=== PATIENT | male | born 1945 | race Two or more races ===

== ENCOUNTER 2016-06-07 18:11 | Inpatient (IN) | payer MEDICAID ==
[~2016-06-07] VITALS: Ht 177.8 cm; Wt 94.5 kg
[2016-06-07 19:38] LABS: Basophils # (auto) 0 uL; Basophils % (auto) 0.5 % (0.0-2.0); Eosinophils # (auto) 0.1 uL; Hematocrit 44.5 % (41.0-53.0); Hemoglobin 14.9 g/dL (13.5-17.5); Lymphocytes % (auto) 32.8 % (10.0-50.0); Mean Corpuscular Hemoglobin 28.2 pg (28.0-32.0); Mean Corpuscular Hgb Conc. 33.6 g/dL (32.0-36.0); Mean Corpuscular Volume 83.9 fL (80.0-100.0); Mean Platelet Volume 7.9 fL (7.4-10.4); Monocytes # (auto) 0.5 uL; Monocytes % (auto) 7.8 % (0.0-12.0); Neutrophils # (auto) 3.4 uL; Neutrophils % (auto) 56.9 % (37.0-80.0); Platelet Count (auto) 226 10^3/uL (140-450); Red Cell Distribution Width 14.3 % (11.6-16.0); White Blood Cell 5.9 10^3/uL (4.4-10.8)
[2016-06-07 20:08] LABS: Albumin 3.6 g/dL (3.4-5.0); BUN/Creatinine Ratio 15.3; Bilirubin, Total 0.5 mg/dL (0.2-1.0); Calcium 8.6 mg/dL (8.5-10.1); Magnesium 2.2 mg/dL (1.6-2.6); Potassium 3.9 mmol/L (3.5-5.1); Total Protein 6.7 g/dL (6.4-8.2)
[2016-06-07 21:00] LABS: Urine RBC None Seen /hpf (0 - 3)
[2016-06-07 21:15] LABS: Urine Bilirubin Negative (Negative); Urine Blood Negative /uL (Negative); Urine Color Yellow (Yellow); Urine Glucose Normal (Normal); Urine Ketone Negative (Negative); Urine Nitrite Negative (Negative); Urine Urobilinogen Normal (Negative); Urine pH 5.5 (5.0-8.0)
[2016-06-08] MEDS ORDERED: METOPROLOL TARTRATE 50 MG TAB PO ONE
[2016-06-08] MEDS ORDERED: TEMAZEPAM 15 MG CAP PO PRN
[2016-06-08] MEDS ORDERED: ACETAMINOPHEN 325 MG TAB PO PRN
[2016-06-08] MEDS ORDERED: ONDANSETRON HCL 4 MG/2 ML VIAL IV PRN
[2016-06-08] MEDS ORDERED: DEXTROSE (50%) 50ML SYRG IV PRN
[2016-06-08] MEDS: ACCU-CHEK COMFORT CURVE STRIP VI SCH ×5 (00:57→21:40)
[2016-06-08] MEDS: InsuLIN REG 1unit/0.01ml Soln (100units/ml) SC SCH ×5 (00:57→21:42)
[2016-06-08 02:30] VITALS: BP 144/80
[2016-06-08] MEDS ORDERED: LISI-275 PO (02:59)
[2016-06-08] MEDS ORDERED: MET50T PO (02:59)
[2016-06-08] MEDS ORDERED: PIOG30TA37 PO (02:59)
[2016-06-08] MEDS ORDERED: METF-314 PO (02:59)
[2016-06-08] MEDS ORDERED: GLIM4TAB42 PO (02:59)
[2016-06-08] MEDS ORDERED: ATOR20TA PO (02:59)
[2016-06-08] MEDS ORDERED: ASPI81CH43 PO (02:59)
[2016-06-08 05:00] VITALS: BP 151/87
[2016-06-08] MEDS: ISOSORBIDE DINITRATE 10 MG TAB PO SCH ×3 (05:42→18:38)
[2016-06-08 05:53] LABS: Basophils # (auto) 0 uL; Basophils % (auto) 0.5 % (0.0-2.0); Eosinophils # (auto) 0.1 uL; Eosinophils % (auto) 1.8 % (0.0-7.0); Hematocrit 45.9 % (41.0-53.0); Hemoglobin 15.1 g/dL (13.5-17.5); Lymphocytes # (auto) 2.4 uL; Lymphocytes % (auto) 33.8 % (10.0-50.0); Mean Corpuscular Hemoglobin 27.8 pg (28.0-32.0); Mean Corpuscular Hgb Conc. 32.8 g/dL (32.0-36.0); Mean Corpuscular Volume 84.8 fL (80.0-100.0); Monocytes # (auto) 0.5 uL; Monocytes % (auto) 7.3 % (0.0-12.0); Neutrophils # (auto) 4.1 uL; Neutrophils % (auto) 56.6 % (37.0-80.0); Platelet Count (auto) 218 10^3/uL (140-450); Red Cell Distribution Width 14.4 % (11.6-16.0); White Blood Cell 7.2 10^3/uL (4.4-10.8)
[2016-06-08 06:20] LABS: Albumin 3.6 g/dL (3.4-5.0); Bilirubin, Total 0.7 mg/dL (0.2-1.0); Calcium 8.6 mg/dL (8.5-10.1); Potassium 3.6 mmol/L (3.5-5.1); Total Protein 6.7 g/dL (6.4-8.2)
[2016-06-08 08:00] VITALS: BP 94/42
[2016-06-08] MEDS: METOPROLOL TARTRATE 50 MG TAB PO SCH ×2 (09:49→21:40)
[2016-06-08] MEDS: FAMOTIDINE 20 MG TAB PO SCH ×2 (09:49→21:40)
[2016-06-08] MEDS: LISINOPRIL 5 MG TAB PO SCH (09:49)
[2016-06-08] MEDS: ASPirin 81 mg TAB PO SCH (09:53)
[2016-06-08] MEDS ORDERED: PIOGLITAZONE HYDROCHLORIDE 30 MG TAB PO SCH (10:00)
[2016-06-08] MEDS ORDERED: ENOXAPARIN SOD 40 MG/0.4 ML SYRINGE SC SCH (10:00)
[2016-06-08] MEDS: SODIUM CHLORIDE 0.9% 1,000 ML IV SCH ×2 (11:15→21:40)
[2016-06-08 12:00] VITALS: BP 104/69
[2016-06-08] MEDS ORDERED: LIDOCAINE 2%HCL (LOCAL ANESTH.) INJ 20ML MDV ONE (13:09)
[2016-06-08] MEDS ORDERED: IODIXANOL 320MG/ML 100ML BTL IV ONE (13:09)
[2016-06-08 13:16] LABS: INR 1.07 (0.9-1.15); Prothrombin Time 11.6 sec (9.37-12.3)
[2016-06-08] MEDS ORDERED: VERAPAMIL 2.5MG/ML INJ 2ML VIAL IV ONE (14:37)
[2016-06-08] MEDS ORDERED: NITROGLYCERIN 5MG/ML 10ML VIAL IV ONE (14:37)
[2016-06-08] MEDS ORDERED: SODIUM CHLORIDE 0.9% 1,000 ML IV SCH (15:21)
[2016-06-08] MEDS ORDERED: MORPHINE SULF INJ 2 MG/ML SYRINGE 1ML IV PRN ×3 (15:30)
[2016-06-08] MEDS ORDERED: ACETAMINOPHEN 500 MG TAB PO PRN (15:30)
[2016-06-08] MEDS ORDERED: NITROGLYCERIN 0.4 MG SL TAB SL PRN ×3 (15:30)
[2016-06-08] MEDS ORDERED: ENOXAPARIN SOD 100 MG/1 ML SYRINGE SC SCH (19:00)
[2016-06-08] MEDS: HYDROcodone-ACET 5/325MG TAB PO PRN (20:00)
[2016-06-08] MEDS ORDERED: CLOPIDOGREL 300 MG TAB PO ONE (20:45)
[2016-06-08 21:30] VITALS: BP 128/81
[2016-06-08] MEDS ORDERED: ATORVASTATIN 20 MG TAB PO SCH (22:00)
[2016-06-09 05:22] VITALS: BP 101/52
[2016-06-09] MEDS: ISOSORBIDE DINITRATE 10 MG TAB PO SCH ×2 (05:54→13:52)
[2016-06-09] MEDS: InsuLIN REG 1unit/0.01ml Soln (100units/ml) SC SCH ×2 (05:55→12:00)
[2016-06-09] MEDS: ACCU-CHEK COMFORT CURVE STRIP VI SCH ×2 (05:55→12:00)
[2016-06-09 06:22] LABS: Basophils # (auto) 0 uL; Basophils % (auto) 0.6 % (0.0-2.0); Eosinophils # (auto) 0.1 uL; Eosinophils % (auto) 1.7 % (0.0-7.0); Hemoglobin 13.5 g/dL (13.5-17.5); Lymphocytes # (auto) 2.1 uL; Lymphocytes % (auto) 30.9 % (10.0-50.0); Mean Corpuscular Hemoglobin 28.4 pg (28.0-32.0); Mean Corpuscular Hgb Conc. 33.7 g/dL (32.0-36.0); Mean Corpuscular Volume 84.4 fL (80.0-100.0); Mean Platelet Volume 8.3 fL (7.4-10.4); Monocytes # (auto) 0.6 uL; Monocytes % (auto) 8.3 % (0.0-12.0); Neutrophils # (auto) 3.9 uL; Neutrophils % (auto) 58.5 % (37.0-80.0); Platelet Count (auto) 216 10^3/uL (140-450); Red Cell Distribution Width 14.5 % (11.6-16.0); White Blood Cell 6.7 10^3/uL (4.4-10.8)
[2016-06-09 06:51] LABS: Potassium 3.5 mmol/L (3.5-5.1)
[2016-06-09 06:58] LABS: BUN/Creatinine Ratio 16.3; Calcium 8.2 mg/dL (8.5-10.1); Magnesium 2.2 mg/dL (1.6-2.6)
[2016-06-09 08:00] VITALS: BP 114/67
[2016-06-09 08:54] VITALS: BP 114/67
[2016-06-09] MEDS: ASPirin 81 mg TAB PO SCH (09:32)
[2016-06-09] MEDS: LISINOPRIL 5 MG TAB PO SCH (09:33)
[2016-06-09] MEDS: METOPROLOL TARTRATE 50 MG TAB PO SCH (09:33)
[2016-06-09] MEDS: FAMOTIDINE 20 MG TAB PO SCH (09:33)
[2016-06-09] MEDS: HYDROcodone-ACET 5/325MG TAB PO PRN (09:37)
[2016-06-09] MEDS ORDERED: CLOPIDOGREL BISULFATE 75 MG TAB PO SCH (10:00)
[2016-06-09] MEDS ORDERED: ENOXAPARIN SOD 40 MG/0.4 ML SYRINGE SC SCH (10:00)
[2016-06-09] MEDS ORDERED: ASPI81CH43 PO (10:41)
[2016-06-09] MEDS ORDERED: ISOS10TA2 PO (10:41)
[2016-06-09] MEDS ORDERED: MET50T PO (10:41)
[2016-06-09] MEDS ORDERED: LISI-275 PO (10:41)
[2016-06-09] MEDS ORDERED: CLOP75TA28 PO (10:41)
[2016-06-09] MEDS ORDERED: ATOR20TA50 PO (10:41)
[2016-06-09 11:59] VITALS: BP 128/77
[2016-06-09 12:37] VITALS: BP 128/77
[2016-06-09] MEDS ORDERED: METF-314 PO (12:50)
[2016-06-09] MEDS ORDERED: GLIM4TAB42 PO (12:50)
== END 2016-06-09 15:40 | disposition home or self-care (01) | DRG 190 ==
LOC: ER 18:11 → TELE 18:12 → TELE-WESTW 06-08 01:59
PROVIDERS: ADMIT Nurse Practitioner; ATTEND Internal Medicine
PROC: 4A023N7 Measurement of Cardiac Sampling and Pressure, Left Heart, Percutaneous Approach (ICD-10-PCS; principal; 2016-06-08)
PROC: B2111ZZ Fluoroscopy of Multiple Coronary Arteries using Low Osmolar Contrast (ICD-10-PCS; 2016-06-08)
PROC: B2151ZZ Fluoroscopy of Left Heart using Low Osmolar Contrast (ICD-10-PCS; 2016-06-08)
DX: I21.4 Non-ST elevation (NSTEMI) myocardial infarction (principal); I72.8 Aneurysm of other specified arteries; I11.9 Hypertensive heart disease without heart failure; E78.5 Hyperlipidemia, unspecified; I25.10 Atherosclerotic heart disease of native coronary artery without angina pectoris; I25.2 Old myocardial infarction; I25.5 Ischemic cardiomyopathy; E11.9 Type 2 diabetes mellitus without complications
CPT/HCPCS: 36415; 71010; 80048; 80053; 80061; 81001; 82962; 83036; 83735; 84484; 85025; 85610; 93005; 93306; 93458; 99152; J1815; J3490; Q9967